=== PATIENT | female | born 1955 | race African-American/Black ===

== ENCOUNTER 2016-10-23 10:43 | Emergency (ER) | payer SELFPAY ==
[~2016-10-23] VITALS: Ht 162.6 cm; Wt 90.0 kg
[~2016-10-23 10:43] MED LIST: MOBI7.5T PO; NIFE30TA2 PO; OXYB5TAB PO; OXYB5TAB10 PO; PARO20TA PO
[2016-10-23 10:46] VITALS: BP 150/80; PULSE 95; RESP 18; TEMP 98; O2SAT 100
--- NOTE | 2016-10-23 11:04 | PD ---
HPI Chief Complaint: Abdominal Pain Time Seen by Provider: 11:03 Travel History International Travel<30 days: No Contact w/Intl Traveler<30days: No Traveled to known affect area: No History of Present Illness HPI 61-year-old Afro-Wallisian female presents the emergency department with 2 week history of worsening abdominal pain. Patient states intermittent sharp epigastric tenderness which is been progressively worsening over the past 2 weeks. Patient was seen at [facility] [place] as CT scan diagnosed with gastritis. Patient states he was discharged home with prescription for Zofran and some other medication she cannot recall. She then saw her primary care physician who prescribed her omeprazole 3 days ago which has not improved her symptoms. Patient states she thought she was doing better until this morning when she had another attack at approximately 10:00. Patient states she ate coffee and apple pie at approximately 8:00 this morning. Patient denies blood in the emesis or coffee grounds. She denies changes in her bowels. She denies urinary symptoms. She denies fever, chills, or other symptoms she has no cardiac history previous to this. Patient does not seem to think food or exertion makes this worse. Over she states nausea and occasional vomiting with food. Patient states she last vomited 2 days ago. She has no known drug allergies. Currently her pain is a 5 out of 10. It was 10 over 10 earlier today. PFSH Past Medical History Asthma: No Anxiety: Yes Cancer: No Cardiovascular Problems: No COPD: No Diabetes: No Endocrine: No Genitourinary: No Hepatitis: No Hiatal Hernia: No Hypertension: Yes Immune Disorder: No Musculoskeletal: Yes (arthritis lower back decompression) Neurologic: No Psychiatric: Yes (anxiety) Reproductive: No Respiratory: No Thyroid Disease: No PNEUMOCCOCAL Vaccine (Year): 2 ?: Not Past Surgical History AICD: No Gynecologic Surgery: Yes (x2 c sections) Joint Replacement: No Pacemaker: No Social History Alcohol Use: Yes (OCCASIONALLY) Tobacco Use: Yes (1-2 CIGGS DAILY...NOW ON CHANTEX MAY 2010) Substance Use: No Allergies-Medications (Allergen,Severity, Reaction): Coded Allergies: No Known Allergies (Verified , 06/26/15) Reported Meds & Prescriptions Reported Meds & Active Scripts Active Ditropan (Oxybutynin Chloride) 5 Mg Tab 5 Mg PO Q12HR Mobic (Meloxicam) 7.5 Mg Tab 7.5 Mg PO DAILY Oxybutynin Chloride Er (Oxybutynin Chloride) 5 Mg Tab 5 Mg PO BID Reported Paroxetine Hcl 20 Mg Tab 20 Mg PO DAILY Nifedical Xl (Nifedipine) 30 Mg Tab 30 Mg PO BID Review of Systems Except as stated in HPI: all other systems reviewed are Neg General / Constitutional: Positive: Chills, No: Fever Eyes: No: Visual changes HENT: No: Headaches Cardiovascular: No: Chest Pain or Discomfort Respiratory: No: Shortness of Breath Gastrointestinal: Positive: Nausea, Vomiting, Abdominal Pain, Dysphagia, Loss of Appetite, No: Diarrhea, Hematemesis, Hematochezia, Constipation, Changes in Bowel Habits Genitourinary: No: Dysuria Musculoskeletal: No: Pain Skin: No Rash Neurologic: No: Weakness Psychiatric: No: Depression Endocrine: No: Polydipsia Hematologic/Lymphatic: No: Easy Bruising Physical Exam Narrative GENERAL: Patient appears in mild to moderate distress. SKIN: Warm and dry. Normal color. Normal turgor. HEAD: Atraumatic. Normocephalic. EYES: Pupils equal and round. No scleral icterus. No injection or drainage. ENT: No nasal bleeding or discharge. Mucous membranes pink and moist. Pharynx is clear. Airway is patent NECK: Trachea midline. Supple nontender. CARDIOVASCULAR: Regular rate and rhythm. No murmurs gallops or rubs. RESPIRATORY: No accessory muscle use. Clear to auscultation. Breath sounds equal bilaterally. GASTROINTESTINAL: Abdomen soft, moderate epigastric tenderness with palpation, nondistended. Bowel sounds present in all quadrants. Hepatic and splenic margins not palpable. No masses. No CVA tenderness. MUSCULOSKELETAL: Extremities without clubbing, cyanosis, or edema. No obvious deformities. NEUROLOGICAL: Awake and alert. No obvious cranial nerve deficits. Motor grossly within normal limits. Five out of 5 muscle strength in the arms and legs. Normal speech. PSYCHIATRIC: Appropriate mood and affect; insight and judgment normal. Data Data Last Documented VS Vital Signs Date Time Temp Pulse Resp B/P Pulse Ox O2 Delivery O2 Flow Rate FiO2 10/23/16 13:33 83 16 166/85 97 Room Air 10/23/16 10:46 98.0 Orders Complete Blood Count With Diff (10/23/16 11:05) Comprehensive Metabolic Panel (10/23/16 11:05) Lipase (10/23/16 11:05) Lactic Acid (10/23/16 11:05) Prothrombin Time / Inr (Pt) (10/23/16 11:05) Act Partial Throm Time (Ptt) (10/23/16 11:05) Urinalysis - C+S If Indicated (10/23/16 11:05) Ct Abd/Pel W Iv Contrast(Rout) (10/23/16 11:05) Iv Access Insert/Monitor (10/23/16 11:05) Ecg Monitoring (10/23/16 11:05) Oximetry (10/23/16 11:05) Morphine Inj (Morphine Inj) (10/23/16 11:15) Ondansetron Inj (Zofran Inj) (10/23/16 11:15) Pantoprazole Inj (Protonix Inj) (10/23/16 11:15) Sodium Chlor 0.9% 1000 Ml Inj (Ns 1000 M (10/23/16 11:05) Sodium Chloride 0.9% Flush (Ns Flush) (10/23/16 11:15) Electrocardiogram (10/23/16 11:05) Ckmb (Isoenzyme) Profile (10/23/16 11:13) Magnesium (Mg) (10/23/16 11:13) Troponin I (10/23/16 11:13) Al-Mag Hy-Si 40-40-4 Mg/Ml Liq (Mag-Al P (10/23/16 11:15) Lidocaine 2% Viscous (Xylocaine 2% Visco (10/23/16 11:15) Chest, Single Ap (10/23/16 11:13) Vascular Poc Ultrasound (10/23/16 ) Iohexol 350 Inj (Omnipaque 350 Inj) (10/23/16 13:47) Labs Laboratory Tests Test 10/23/16 10/23/16 11:30 12:00 Urine Color YELLOW Urine Turbidity HAZY Urine pH 5.5 Urine Specific [place] 1.027 Urine Protein TRACE mg/dL Urine Glucose (UA) NEG mg/dL Urine Ketones NEG mg/dL Urine Occult Blood NEG Urine Nitrite NEG Urine Bilirubin NEG Urine Urobilinogen 2.0 MG/DL Urine Leukocyte Esterase NEG Urine RBC LESS THAN 1 /hpf Urine WBC 2 /hpf Urine Squamous Epithelial 11 /hpf Cells Urine Bacteria OCC /hpf Urine Mucus FEW /lpf Microscopic Urinalysis Comment CULT NOT INDICATED White Blood Count 10.2 TH/MM3 Red Blood Count 4.45 MIL/MM3 Hemoglobin 12.1 GM/DL Hematocrit 37.1 % Mean Corpuscular Volume 83.5 FL Mean Corpuscular Hemoglobin 27.3 PG Mean Corpuscular Hemoglobin 32.7 % Concent Red Cell Distribution Width 14.7 % Platelet Count 261 TH/MM3 Mean Platelet Volume 8.4 FL Neutrophils (%) (Auto) 79.6 % Lymphocytes (%) (Auto) 12.6 % Monocytes (%) (Auto) 6.6 % Eosinophils (%) (Auto) 0.8 % Basophils (%) (Auto) 0.4 % Neutrophils # (Auto) 8.1 TH/MM3 Lymphocytes # (Auto) 1.3 TH/MM3 Monocytes # (Auto) 0.7 TH/MM3 Eosinophils # (Auto) 0.1 TH/MM3 Basophils # (Auto) 0.0 TH/MM3 CBC Comment DIFF FINAL Differential Comment Prothrombin Time 10.7 SEC Prothromb Time International 1.0 RATIO Ratio Activated Partial 26.1 SEC Thromboplast Time Sodium Level 136 MEQ/L Potassium Level 3.7 MEQ/L Chloride Level 104 MEQ/L Carbon Dioxide Level 26.3 MEQ/L Anion Gap 6 MEQ/L Blood Urea Nitrogen 14 MG/DL Creatinine 0.67 MG/DL Estimat Glomerular Filtration 108 ML/MIN Rate Random Glucose 98 MG/DL Lactic Acid Level 2.0 mmol/L Calcium Level 9.0 MG/DL Magnesium Level 1.9 MG/DL Total Bilirubin 0.5 MG/DL Aspartate Amino Transf 73 U/L (AST/SGOT) Alanine Aminotransferase 50 U/L (ALT/SGPT) Alkaline Phosphatase 100 U/L Total Creatine Kinase 83 U/L Troponin I LESS THAN 0.02 NG/ML Total Protein 7.3 GM/DL Albumin 3.8 GM/DL Lipase 163 U/L [facility] Medical Decision Making Medical Screen Exam Complete: Yes Emergency Medical Condition: Yes Differential Diagnosis Gastritis. Renal colic. Biliary colic. Pancreatitis. Cardiac syndrome. Narrative Course Patient is medically stable at time of exam. Labs ordered including CBC, CMP, lipase, Lactic acid, cardiac panel, coagulation studies and Urinalysis. EKG and chest x-ray is ordered. IV access is obtained patient is given 1 g morphine IV as well as 4 mg OF trauma IV. Patient is given pantoprazole 40 mg IV as well as a 1000 mL normal saline bolus. CT of the abdomen with oral and IV contrast is ordered. Patient is also given a GI cocktail. EKG shows normal sinus rhythm. This is reviewed with Dr. Beth. Chest x-ray shows no acute process per radiologist CBC is unremarkable. Urinalysis is unremarkable. Coagulation studies are normal. CMP shows normal electrolytes and BUN and creatinine. Lipase is normal at 163. Troponin is normal. CT shows no acute process per radiology. Patient feels subjectively improved after medications given. Patient will be continued on omeprazole 40 mg twice a day for 2 weeks. Patient given Magic mouthwash swish and swallow every 2 hours when necessary # 120 mL was with 2 refills. Patient also given Zofran 4 mg one every 6 hours when necessary nausea #12. Patient is to follow-up with her primary care physician. Continue or worsen she should see a hot billet shear operator for further evaluation and treatment. Referrals: Primary Care Physician Patient Instructions: General Instructions Additional Instructions: Chest x-ray shows no acute process per radiologist CBC is unremarkable. Urinalysis is unremarkable. Coagulation studies are normal. CMP shows normal electrolytes and BUN and creatinine. Lipase is normal at 163. Troponin is normal. CT shows no acute process per radiology. Patient feels subjectively improved after medications given. Patient will be continued on omeprazole 40 mg twice a day for 2 weeks. Patient given Magic mouthwash swish and swallow every 2 hours when necessary # 120 mL was with 2 refills. Patient also given Zofran 4 mg one every 6 hours when necessary nausea #12. Patient is to follow-up with her primary care physician. Continue or worsen she should see a hot billet shear operator for further evaluation and treatment. Med/Other Pt SpecificInfo: Prescription(s) given Scripts Qhfxgodt-Xixihmlwrmigyis-Pugvdmaah Liq (Magic Mouthwash Adult Liq)120 Ml Susp5 Ml SWISH-SWAL Q2HR #120 ML Ref 2 Each 5mL contains: Nystatin 200,000units, Diphenhydramine 4.25mg, Viscous Lidocaine 10mg, Mar syrup 0.8 mL Prov:Noe Beth MD 10/23/16 Ondansetron (Zofran)4 Mg Tab4 Mg PO Q6HR PRN (NAUSEA OR VOMITING) #12 TAB Prov:Noe Beth MD 10/23/16 Omeprazole 40 Mg Cap40 Mg PO BID 15 Days Prov:Noe Beth MD 10/23/16 Disposition: 01 DISCHARGE HOME Condition: Stable Eric Hercules Oct 23, 2016 11:04
[2016-10-23] MEDS ORDERED: SODIUM CHLOR 0.9% 1000 ML INJ 1,000 ML IV SCH (11:05)
[2016-10-23] MEDS ORDERED: PANTOPRAZOLE SODIUM 40 MG VIAL IVP ONE (11:15)
[2016-10-23] MEDS ORDERED: MORPHINE SULFATE 4 MG/ML INJ IV PUSH ONE (11:15)
[2016-10-23] MEDS ORDERED: SODIUM CHLORIDE 0.9% FLUSH 10 ML FLUSH IV FLUSH PRN (11:15)
[2016-10-23] MEDS ORDERED: ALUMINUM/MAGNESIUM/SIMETH 30 ML CUP PO ONE (11:15)
[2016-10-23] MEDS ORDERED: ONDANSETRON HCL 4 MG/2 ML VIAL IVP ONE (11:15)
[2016-10-23] MEDS ORDERED: LIDOCAINE VISCOUS 2% SOLN 15 ML UDC PO ONE (11:15)
--- NOTE | 2016-10-23 12:08 | RADRPT ---
EXAM DATE/TIME: 10/23/2016 11:17 [facility] COMPARISON: No previous studies available for comparison. INDICATIONS : Lower chest, abdominal pain, and vomitting. MEDICAL HISTORY : Hypertension. SURGICAL HISTORY : Lumbar fusion. ENCOUNTER: Initial ACUITY: 3 weeks PAIN SCORE: 8/10 LOCATION: Bilateral chest FINDINGS: A single view of the chest demonstrates the lungs to be hypoinflated without evidence of mass, infilt rate or effusion. The cardiomediastinal contours are unremarkable. Osseous structures are intact. CONCLUSION: No acute disease. Eber Santillan MD on October 23, 2016 at 12:04 Board Certified Radiologist. This report was verified electronically.
[2016-10-23 12:13] VITALS: O2SAT 96
[2016-10-23 12:13] LABS: AUTOMATED NEUTROPHIL # 8.1 TH/MM3 (1.8-7.7); BASOPHIL % 0.4 % (0.0-2.0); EOSINOPHIL # 0.1 TH/MM3 (0-0.4); EOSINOPHIL % 0.8 % (0.0-4.0); HEMATOCRIT 37.1 % (35.0-46.0); HEMO FLAGS DIFF FINAL; LYMPH % 12.6 % (9.0-44.0); LYMPHOCYTE # 1.3 TH/MM3 (1.0-4.8); MEAN CELL VOLUME 83.5 FL (80.0-100.0); MEAN CORPUSCULAR HEMOGLOBIN 27.3 PG (27.0-34.0); MEAN CORPUSCULAR HGB CONC 32.7 % (32.0-36.0); MONO % 6.6 % (0.0-8.0); NEUT % 79.6 % (16.0-70.0); PLATELET COUNT 261 TH/MM3 (150-450); RED BLOOD COUNT 4.45 MIL/MM3 (4.00-5.30); RED CELL DISTRIBUTION WIDTH 14.7 % (11.6-17.2); WHITE BLOOD COUNT 10.2 TH/MM3 (4.0-11.0)
[2016-10-23 12:19] LABS: BACTERIA, URINE OCC /hpf; BLOOD, URINE NEG (NEG); COMMENT (UR) CULT NOT INDICATED; CULTURE IF INDICATED CULT NOT INDICATED; GLUCOSE,URINE NEG (NEG); KETONE, URINE NEG (NEG); MUCUS URINE FEW /lpf (OCC); NITRITE,URINE NEG (NEG); PH, URINE 5.5 (5.0-8.5); SQUAMOUS EPITHELIAL CELL URINE 11 /hpf (0-5); URINE COLOR YELLOW (YELLW/STRAW)
[2016-10-23 12:22] LABS: APTT (PATIENT) 26.1 SEC (24.3-30.1); PROTHROMBIN TIME - PATIENT 10.7 SEC (9.8-11.6)
[2016-10-23 12:37] LABS: MAGNESIUM 1.9 MG/DL (1.5-2.5)
[2016-10-23 12:39] LABS: ANION GAP 6 MEQ/L (5-15); BICARBONATE 26.3 MEQ/L (21.0-32.0); BLOOD UREA NITROGEN 14 MG/DL (7-18); CHLORIDE 104 MEQ/L (98-107); GLOMERULAR FILTRATION RATE 108 ML/MIN (>89); POTASSIUM 3.7 MEQ/L (3.5-5.1); SODIUM (NA) 136 MEQ/L (136-145)
[2016-10-23 12:40] LABS: CREATINE KINASE 83 U/L (26-192)
[2016-10-23 12:41] LABS: ALT (GPT) 50 U/L (10-53); AST (GOT) 73 U/L (15-37)
[2016-10-23 12:43] LABS: ALKALINE PHOSPHATASE 100 U/L (45-117); TOTAL BILIRUBIN ADULT 0.5 MG/DL (0.2-1.0)
[2016-10-23 13:33] VITALS: BP 166/85; PULSE 83; RESP 16; O2SAT 97
[2016-10-23] MEDS ORDERED: IOHEXOL 350 MG/ML 10 ML VIAL (for RAD DIAG) IV ONE (13:47)
--- NOTE | 2016-10-23 14:38 | RADRPT ---
EXAM DATE/TIME: 10/23/2016 13:49 [facility] COMPARISON: No previous studies available for comparison. INDICATIONS : Diffuse abdomen pain with vomiting for two weeks. IV CONTRAST: 90 cc Omnipaque 350 (iohexol) IV ORAL CONTRAST: Prescribed oral contrast ingested. RADIATION DOSE: 12.38 CTDIvol (mGy) MEDICAL HISTORY : Hypertension. SURGICAL HISTORY : section. ENCOUNTER: Initial ACUITY: 2 weeks PAIN SCALE: 10/10 LOCATION: Bilateral upper quadrant TECHNIQUE: Volumetric scanning of the abdomen and pelvis was performed. Using automated exposure control and ad justment of the mA and/or kV according to patient size, radiation dose was kept as low as reasonably achievable to obtain optimal diagnostic quality images. DICOM format image data is available electro nically for review and comparison. FINDINGS: LOWER LUNGS: The visualized lower lungs are clear. LIVER: Homogeneous density without lesion. There is no dilation of the biliary tree. No calcified gallston es. SPLEEN: Normal size without lesion. PANCREAS: Within normal limits. KIDNEYS: Normal in size and shape. There is no mass, stone or hydronephrosis. ADRENAL GLANDS: Within normal limits. VASCULAR: There is no aortic aneurysm. BOWEL/MESENTERY: The stomach, small bowel, and colon demonstrate no acute abnormality. There is no free intraperitone al air or fluid. ABDOMINAL WALL: Within normal limits. RETROPERITONEUM: There is no lymphadenopathy. BLADDER: No wall thickening or mass. REPRODUCTIVE: Within normal limits. INGUINAL: There is no lymphadenopathy or hernia. MUSCULOSKELETAL: Or lumbar fixation apparatus is noted. CONCLUSION: 1. No evidence of acute process. 2. Status post lumbar fusion. Eber Santillan MD on October 23, 2016 at 14:35 Board Certified Radiologist. This report was verified electronically.
[2016-10-23] MEDS ORDERED: MAGICADU2 SWISH-SWAL (14:49)
[2016-10-23] MEDS ORDERED: ZOFR4TAB PO (14:49)
[2016-10-23] MEDS ORDERED: OMEP40CA2 PO (14:49)
--- NOTE | 2016-10-23 14:58 | PD ---
Data Data Last Documented VS Vital Signs Date Time Temp Pulse Resp B/P Pulse Ox O2 Delivery O2 Flow Rate FiO2 10/23/16 13:33 83 16 166/85 97 Room Air 10/23/16 10:46 98.0 Orders Complete Blood Count With Diff (10/23/16 11:05) Comprehensive Metabolic Panel (10/23/16 11:05) Lipase (10/23/16 11:05) Lactic Acid (10/23/16 11:05) Prothrombin Time / Inr (Pt) (10/23/16 11:05) Act Partial Throm Time (Ptt) (10/23/16 11:05) Urinalysis - C+S If Indicated (10/23/16 11:05) Ct Abd/Pel W Iv Contrast(Rout) (10/23/16 11:05) Iv Access Insert/Monitor (10/23/16 11:05) Ecg Monitoring (10/23/16 11:05) Oximetry (10/23/16 11:05) Morphine Inj (Morphine Inj) (10/23/16 11:15) Ondansetron Inj (Zofran Inj) (10/23/16 11:15) Pantoprazole Inj (Protonix Inj) (10/23/16 11:15) Sodium Chlor 0.9% 1000 Ml Inj (Ns 1000 M (10/23/16 11:05) Sodium Chloride 0.9% Flush (Ns Flush) (10/23/16 11:15) Electrocardiogram (10/23/16 11:05) Ckmb (Isoenzyme) Profile (10/23/16 11:13) Magnesium (Mg) (10/23/16 11:13) Troponin I (10/23/16 11:13) Al-Mag Hy-Si 40-40-4 Mg/Ml Liq (Mag-Al P (10/23/16 11:15) Lidocaine 2% Viscous (Xylocaine 2% Visco (10/23/16 11:15) Chest, Single Ap (10/23/16 11:13) Vascular Poc Ultrasound (10/23/16 ) Iohexol 350 Inj (Omnipaque 350 Inj) (10/23/16 13:47) Labs Laboratory Tests Test 10/23/16 10/23/16 11:30 12:00 Urine Color YELLOW Urine Turbidity HAZY Urine pH 5.5 Urine Specific [place] 1.027 Urine Protein TRACE mg/dL Urine Glucose (UA) NEG mg/dL Urine Ketones NEG mg/dL Urine Occult Blood NEG Urine Nitrite NEG Urine Bilirubin NEG Urine Urobilinogen 2.0 MG/DL Urine Leukocyte Esterase NEG Urine RBC LESS THAN 1 /hpf Urine WBC 2 /hpf Urine Squamous Epithelial 11 /hpf Cells Urine Bacteria OCC /hpf Urine Mucus FEW /lpf Microscopic Urinalysis Comment CULT NOT INDICATED White Blood Count 10.2 TH/MM3 Red Blood Count 4.45 MIL/MM3 Hemoglobin 12.1 GM/DL Hematocrit 37.1 % Mean Corpuscular Volume 83.5 FL Mean Corpuscular Hemoglobin 27.3 PG Mean Corpuscular Hemoglobin 32.7 % Concent Red Cell Distribution Width 14.7 % Platelet Count 261 TH/MM3 Mean Platelet Volume 8.4 FL Neutrophils (%) (Auto) 79.6 % Lymphocytes (%) (Auto) 12.6 % Monocytes (%) (Auto) 6.6 % Eosinophils (%) (Auto) 0.8 % Basophils (%) (Auto) 0.4 % Neutrophils # (Auto) 8.1 TH/MM3 Lymphocytes # (Auto) 1.3 TH/MM3 Monocytes # (Auto) 0.7 TH/MM3 Eosinophils # (Auto) 0.1 TH/MM3 Basophils # (Auto) 0.0 TH/MM3 CBC Comment DIFF FINAL Differential Comment Prothrombin Time 10.7 SEC Prothromb Time International 1.0 RATIO Ratio Activated Partial 26.1 SEC Thromboplast Time Sodium Level 136 MEQ/L Potassium Level 3.7 MEQ/L Chloride Level 104 MEQ/L Carbon Dioxide Level 26.3 MEQ/L Anion Gap 6 MEQ/L Blood Urea Nitrogen 14 MG/DL Creatinine 0.67 MG/DL Estimat Glomerular Filtration 108 ML/MIN Rate Random Glucose 98 MG/DL Lactic Acid Level 2.0 mmol/L Calcium Level 9.0 MG/DL Magnesium Level 1.9 MG/DL Total Bilirubin 0.5 MG/DL Aspartate Amino Transf 73 U/L (AST/SGOT) Alanine Aminotransferase 50 U/L (ALT/SGPT) Alkaline Phosphatase 100 U/L Total Creatine Kinase 83 U/L Troponin I LESS THAN 0.02 NG/ML Total Protein 7.3 GM/DL Albumin 3.8 GM/DL Lipase 163 U/L MDM Supervised Visit with [facility]: Yes Narrative Course The history, exam, and medical decision-making in the associated mid-level provider note were completed with my assistance. I reviewed and agree with the findings presented. I attest that I had a [id number] encounter with the patient on the same day, and personally performed and documented my assessment and findings in the medical record. *My assessment and Findings: 61-year-old woman with epigastric abdominal pain, likely gastritis or peptic ulcer disease. She was started on some omeprazole. Workup negative. Recommend she continue these medications, close outpatient follow-up. Referrals: Primary Care Physician Patient Instructions: General Instructions Additional Instruction: Chest x-ray shows no acute process per radiologist CBC is unremarkable. Urinalysis is unremarkable. Coagulation studies are normal. CMP shows normal electrolytes and BUN and creatinine. Lipase is normal at 163. Troponin is normal. CT shows no acute process per radiology. Patient feels subjectively improved after medications given. Patient will be continued on omeprazole 40 mg twice a day for 2 weeks. Patient given Magic mouthwash swish and swallow every 2 hours when necessary # 120 mL was with 2 refills. Patient also given Zofran 4 mg one every 6 hours when necessary nausea #12. Patient is to follow-up with her primary care physician. Continue or worsen she should see a electrician station assistant for further evaluation and treatment. Scripts Wqguykwh-Krbtprzczwjwoxc-Wjxxhzuxl Liq (Magic Mouthwash Adult Liq)120 Ml Susp5 Ml SWISH-SWAL Q2HR #120 ML Ref 2 Each 5mL contains: Nystatin 200,000units, Diphenhydramine 4.25mg, Viscous Lidocaine 10mg, Mar syrup 0.8 mL Prov:Noe Beth MD 10/23/16 Ondansetron (Zofran)4 Mg Tab4 Mg PO Q6HR PRN (NAUSEA OR VOMITING) #12 TAB Prov:Noe Beth MD 10/23/16 Omeprazole 40 Mg Cap40 Mg PO BID 15 Days Prov:Noe Beth MD 10/23/16 Disposition: 01 DISCHARGE HOME Condition: Stable Noe Beth MD Oct 23, 2016 14:58
[2016-10-23 15:21] VITALS: BP 172/76
--- NOTE | 2016-10-24 17:46 | EKG ---
Date Performed: 10/23/2016 Time Performed: 11:34:15 PTAGE: 61 years EKG: Sinus rhythm Normalization compared to prior tracing NORMAL ECG PREVIOUS TRACING : 11/15/2014 10.12 DOCTOR: Jonny Escalante Interpretating Date/Time 10/24/2016 17:45:46
== END 2016-10-23 15:30 | disposition home or self-care (01) ==
LOC: NEPD 10:43
DX: R10.13 Epigastric pain (principal); R11.2 Nausea with vomiting, unspecified; R13.10 Dysphagia, unspecified; F41.9 Anxiety disorder, unspecified; I10 Essential (primary) hypertension; M13.88 Other specified arthritis, other site
CPT/HCPCS: 71010; 74177; 80053; 81001; 82550; 83605; 83690; 83735; 84484; 85025; 85610; 85730; 93005; 96374; 96375; 99285; C9113; J2270; J2405; J7030; Q9967

== ENCOUNTER 2018-03-23 06:02 | Inpatient (IN) ==
[2018-03-23] MEDS ORDERED: Chlorhexidine Gluconate 2% 1 Pack (2 Cloths) TOPICAL ONE (06:39)
[2018-03-23] MEDS ORDERED: Metoprolol Tartrate 25 MG Tablet PO ONE (06:39)
[2018-03-23] MEDS ORDERED: Sodium Chlor 0.9% Inj 500 ML IV.SIG ONE (06:45)
[2018-03-23] MEDS ORDERED: ceFAZolin 2 GM IV; once IV.SIG ONE (06:45)
[2018-03-23] MEDS ORDERED: Sod Chloride 0.9% Inj 1,000 ML IV.SIG ONE (06:45)
--- NOTE | 2018-03-23 07:23 | XR ---
EXAM DATE: 03/23/2018 7:20 AM EST AGE/SEX: 62 years / Female INDICATIONS: Evaluate for pneumonia, pneumothorax, or any communicable disease. Pre op laminectomy. CLINICAL DATA: This is the patient's initial encounter. Patient reports that signs and symptoms have been present for 1 day and indicates a pain score of 0/10. MEDICAL/SURGICAL HISTORY: Arthritis. Gastroesophageal reflux disease. Hypertension. Pancreat itis. section. Back surgery. COMPARISON: [facility], MR LUMBAR SPINE W/O CONTRAST, 03/18/2018. . FINDINGS: A single AP view of the chest demonstrates the lungs to be symmetrically aerated without evidence of mass, infiltrate or effusion. The cardiomediastinal contours are unremarkable. Osseous structures a re intact. CONCLUSION: Negative for acute process Electronically signed by: Renaldo Poe MD Board Certified Radiologist 03/23/2018 7:22 AM EST
[2018-03-23] MEDS ORDERED: Propofol Inj 500 MG/50 ML Vial ONE ×3 (07:26→12:41)
[2018-03-23] MEDS ORDERED: Thrombin Topical Soln 5,000 UNIT Vial TOPICAL ONE ×2 (07:30→09:41)
[2018-03-23] MEDS ORDERED: Lidocaine 1%/Epinephrine 1:100,000 Inj 30 ML Vial ONE (07:30)
[2018-03-23] MEDS ORDERED: Gelatin Size 100 Topical Foam ONE (07:31)
[2018-03-23] MEDS ORDERED: Artificial Tears Opth Oint 3.5 GM Tube ONE (08:25)
[2018-03-23] MEDS ORDERED: Bupivacaine/Epinephrine PF Inj 0.5% 30 ML Vial ONE (09:20)
[2018-03-23] MEDS ORDERED: Lidocaine 1% Inj 50 ML Vial ONE (09:21)
[2018-03-23] MEDS ORDERED: ceFAZolin 1 GM Premix Inj 2 GM/100 ML PIGGYBACK IV.SIG ONE (13:01)
--- NOTE | 2018-03-23 14:02 | XR ---
EXAM DATE: 03/23/2018 1:54 PM EST AGE/SEX: 62 years / Female INDICATIONS: Post-op L2-L3, L3-L4, L4-L5 posterior lumbar fusion. CLINICAL DATA: This is the patient's subsequent encounter. Patient reports that signs and symptoms h ave been present for 1 day and indicates a pain score of Nonresponsive. MEDICAL/SURGICAL HISTORY: Non-responsive. Fusion, lumbar. COMPARISON: [facility], XR SPINE LUMBAR (MIN 4 VIEWS), 04/25/2014. . FINDINGS: Status post transpedicular fixation from L2 to L5.. Anatomic alignment. Artificial disc is seen at L2 -3 and L4-5. CONCLUSION: Anatomic alignment. Electronically signed by: Renaldo Poe MD Board Certified Radiologist 03/23/2018 2:00 PM EST
[2018-03-23] MEDS ORDERED: fentaNYL Citrate Inj 100 MCG/2 ML Ampul ONE (14:21)
[2018-03-23] MEDS ORDERED: *HYDROmorphone PF Inj 1 MG/ML Ampul PERIprocedural Use ONLY ONE ×2 (14:41→14:45)
[2018-03-23] MEDS ORDERED: Acetaminophen 325 MG Tablet PO PRN (14:50)
[2018-03-23] MEDS ORDERED: Naloxone Inj 0.4 MG/ML Vial IV.PUSH PRN (14:50)
[2018-03-23] MEDS ORDERED: Post-op Orders (for Pharmacy) OTHER STA (14:50)
[2018-03-23] MEDS ORDERED: Bisacodyl 10 MG Supp RECTAL PRN (14:50)
[2018-03-23] MEDS ORDERED: Morphine Inj 30 MG/30 ML PCA.VIAL PCA ONE (15:03)
[2018-03-23] MEDS: Morphine Inj 30 MG/30 ML PCA.VIAL PCA PRN (15:40)
--- NOTE | 2018-03-23 15:42 | P.CONIM ---
History of Present Illness Primary Care Provider: Nina Thomas MD History of Present Illness: Pt is 62 yo with hx lumbar surgery who was admitted today after L2-5 fusion for symptomatic spinal stenosis. Pt seen in Pacu and is sleepy but is responsive and follows commands. She is moving all extremities. Just recieved small dose iv dilaudid. Only functional iv site right foot. Pt denies any cp or sob. PMH: lumbar spinal stenosis/radiculopathy prior lumbar surgery. htn depression gerd urinary incontinence ptsd FH: [place] SH. smokes 2 to 3x per week. Meds: norvasc 10mg daily paxil 20mg daily oxybutynin 5mg daily norco 7.5/325mg as needed zantac 150mg take 300mg hs [facility] Social History Social History Substance History: No History of Abuse Second Hand Smoke Exposure: Yes Smoking Status: Current every day smoker Tobacco Type: Cigarettes How Often Do You Have a Drink Containing Alcohol: 2 to 3 times a week Recent Travel in [facility] within the Last 8 Weeks: No Recent Out of Country Travel within the Last 8 Weeks: No Medications and Allergies Allergies Allergy/AdvReac Type Severity Reaction Status Date / Time No Known Allergies Allergy Verified 03/23/18 07:20 Home Medications Medication Instructions Recorded Confirmed Type amlodipine 10 mg PO DAILY 03/21/18 03/23/18 History paroxetine HCl [Paxil] 20 mg PO DAILY 03/21/18 03/23/18 History hydrocodone-acetaminophen [[place]] 1 tab PO TID PRN 03/23/18 03/23/18 History oxybutynin chloride 5 mg PO HS 03/23/18 03/23/18 History ranitidine HCl 300 mg PO HS 03/23/18 03/23/18 History Active Medications: Active Medications Acetaminophen (Tylenol) 650 mg PO Q6H PRN PRN Reason: PAIN LESS THAN 5 ON SCALE Hydrocodone Bitart/Acetaminophen ([place] 10/325) 1 tab PO Q4H PRN PRN Reason: PAIN LESS THAN 5 ON SCALE Al Hydroxide/Mg Hydroxide (Milk Of Magnesia Liq) 30 ml PO BID PRN PRN Reason: Mild Constipation Bisacodyl (Dulcolax Supp) 10 mg RECTAL DAILY PRN PRN Reason: SEVERE CONSITIPATION Diphenhydramine HCl (Benadryl Inj) 25 mg IV.PUSH Q6H PRN PRN Reason: for itching Enoxaparin Sodium (Lovenox Inj) 40 mg SQ Q24H TAZ Lactated Ringer's (Lr 1000 Ml Inj) 1,000 mls @ 30 mls/hr IV.SIG .Q24H TAZ Stop: 03/24/18 06:44 Last Admin: 03/23/18 08:17 Dose: 30 mls/hr Sodium Chloride (Ns Inj) 500 mls @ 30 mls/hr IV.SIG .[id number] ONE Stop: 03/23/18 23:24 Last Admin: 03/23/18 07:38 Dose: Not Given Sodium Chloride (Ns Inj) 1,000 mls @ 30 mls/hr IV.SIG .Q24H ONE Stop: 03/24/18 06:44 Last Admin: 03/23/18 07:38 Dose: Not Given Cefazolin Sodium/Dextrose (Ancef 2 Gm Premix Inj) 2 gm in 50 mls @ 100 mls/hr IV.SIG Q8H [facility] Stop: 03/24/18 13:29 Morphine Sulfate (Morphine Inj) 30 mg in 30 mls @ 0 mls/hr INK GRINDER UNSCH PRN PRN Reason: prn pain Potassium Chloride/Sodium Chloride (Ns + Kcl 20 Meq Inj) 1,000 mls @ 80 mls/hr IV.CONT .[id number] [facility] Lactulose (Lactulose Liq) 30 ml PO DAILY PRN PRN Reason: SEVERE CONSITIPATION Miscellaneous Information (Misc Nursing Information) 1 each OTHER UNSCH PRN PRN Reason: SEE LABEL COMMENTS Stop: 03/24/18 14:30 Morphine Sulfate (Morphine Inj) 2 mg IV.PUSH Q3H PRN PRN Reason: BREAKTHROUGH PAIN Naloxone HCl (Narcan Inj) 0.4 mg IV.PUSH PRN PRN PRN Reason: Resp rate < 10 Ondansetron HCl (Zofran Inj) 4 mg IV.PUSH Q6H PRN PRN Reason: NAUSEA OR VOMITING Senna/Docusate Sodium (Rosi-Colace) 1 tab PO BID [facility] Sennosides (Senokot) 17.2 mg PO BID PRN PRN Reason: Moderate Constipation Sodium Chloride (Ns Flush) 2 ml IV.FLUSH PRN PRN PRN Reason: FLUSH AFTER USING IV ACCESS Sodium Chloride (Ns Flush) 2 ml IV.FLUSH BID TAZ Physical Exam Vital signs: Last Vital Signs Temp 98.6 F 03/23/18 07:00 Pulse 94 H 03/23/18 07:00 Resp 16 03/23/18 07:00 BP 179/95 H 03/23/18 07:00 Pulse Ox 100 03/23/18 07:00 Narrative: lying in pacu bed writhing a little moves all 4 extremities follows commands heart reg lung cta abd s/nt ext no edema lumbar khalif drain boswell Assessment and Plan Assessment (1) Lumbar stenosis: Code(s): M48.061 - Spinal stenosis, lumbar region without neurogenic claudication Status: Acute Plan 1. s/p L2-5 fusion. lumbar spinal stenosis/radiculopathy 2. htn 3. depression 4. gerd 5. urinary incontinence dvt prophylaxis pain control on family resource management specialist pump consult IV team for iv access. PT eval dc boswell jerry. cont home bp meds ivf. advance diet as tolerated AM bmp.
--- NOTE | 2018-03-23 16:21 | P.OP ---
- Preoperative Diagnosis (1) Lumbar stenosis Date of procedure: 03/23/18 Procedure: Extension of prior L4/5 fusion up to L2/3 Laminectomy at L2/3 and L3/4 as well as right sided L2/3 discectomy Instrumentation from L2-L3-L4-L5 [place] screws L2, L3 6.5 x 45 both levels both sides 110mm rods into prior screws from L2 down to L5 10mm lordoic PEEK interbody at L2/3 using Novabone and Ceramic allograft [facility] Surgeon: Oziel Chester MD Estimated blood loss (mL): 400 Operation and Findings: Indications: This is a 62yoF who had an L4/5 fusion in 2014 by Orthopedics here at [place]. She did well. Over the past year she has developed neurogenic claudication. Imaging shows a large disc herniation at L2/3 as well as stenosis at L3/4 adjacent to her prior fusion. Open revision of the construct, decompression of L2/3 and L3/4 with laminectomy and discectomy at right L2/3 with extension of fusion up to L2 is indicated. Description of Procedure: Patient was brought to Main OR and the procedure done under general. She was placed in prone position on the [facility] bed with pads and all pressure points padded. Midlumbar spine was prepped and draped in the usual sterile fashion. Old lateral incisions were marked but a new midline incision was used. This was infiltrated with local, then opened sharply down to spinous processes of L2 to L5. Subperiosteal dissection was carried out from L2 and L3 out to the facets bilaterally. At L4 and L5 old screws were located and dissected to expose the steve. Old set screws and rods removed. New pedicles screws placed at L2 and L3 using awl, drill, tap method and biplane fluoro with screws measuring 6.5 x 45mm. Next decompression performed to decompression L2/ 3 and L3/4 intervals with full laminectomies using drill, curettes, and kerosin rongeurs. Right L2/3 interval revealed a very large herniated disc which was sent to pathology for permanent section. Thecal sac retracted medially and the right L2/3 disc space was identified. This was opened sharply and discectomy performed removing disc material, using ellen of progressive size up to 10mm, with fluoroscopic guidance. A size 10mm Lordotic PEEK cage filled with allograft was advanced to the disc space using fluoroscopic guidance after packing before and after with allograft. 110mm Lordotic rods were placed in the set screws and torque countertorqued to final tighten. Exposed dura was covered with gelfoam, wound irrigated with bacitracin irrigation, then closed in layers over a 7-flat channel drain using 0-Vicryl for deep fascia, 2-0 Vicryl for superficial fascia and subcutaneous, shaniqua for skin. Sterile dressing applied and nylon drain suture secured. There were no periprocedural complications. All sponge and needle counts were correct. Patient was returned supine, extubated and taken to recovery in stable condition. Dr. Chester was present and scrubbed for the entire procedure. EBL 400cc, ending Hgb 10 (starting 12), no blood transfused.
[2018-03-23 17:28] LABS: Hematocrit 32.7 % (35.0-46.0); Hemoglobin 10.7 gm/dL (11.6-15.3); Mean Corpuscular HGB Conc 32.7 % (32.0-36.0); Mean Corpuscular Volume 85.7 fL (80.0-100.0); Mean Platelet Volume 8.3 fL (7.0-11.0); Platelet Count 223 th/mm3 (150-450); Red Blood Count 3.81 mil/mm3 (4.00-5.30); Red Cell Distribution Width 15.1 % (11.6-17.2); White Blood Count 12.5 th/mm3 (4.0-11.0)
[2018-03-23] MEDS: Morphine Inj 4 MG/ML Vial IV.PUSH PRN (18:42)
--- NOTE | 2018-03-23 18:45 | ECG ---
Date Performed: 03/23/2018 Time Performed: 06:57:35 PTAGE: 62 years EKG: Sinus rhythm NORMAL ECG PREVIOUS TRACING : 10/23/2016 11.34 Since the previous tracing, no significant change noted DOCTOR: Demetrio Vidales Interpretating Date/Time 03/23/2018 18:44:49
[2018-03-23] MEDS: Senna/Docusate Sodium 8.6/50 MG Tablet PO SCH (22:43)
[2018-03-23] MEDS: Famotidine 20 MG Tablet PO SCH (22:43)
[2018-03-23] MEDS: Ciprofloxacin 500 MG Tablet PO SCH (22:44)
[2018-03-23] MEDS: ceFAZolin 2 GM Premix Inj 2 GM/50 ML PIGGYBACK IV.SIG SCH (22:45)
[2018-03-24] MEDS: ceFAZolin 2 GM Premix Inj 2 GM/50 ML PIGGYBACK IV.SIG SCH ×2 (04:35→12:17)
[2018-03-24 06:44] LABS: Baso % (Auto) 0.2 % (0.0-2.0); Eos # (Auto) 0.4 th/mm3 (0.0-0.4); Eos % (Auto) 3.3 % (0.0-4.0); Hematocrit 29.3 % (35.0-46.0); Hemoglobin 9.7 gm/dL (11.6-15.3); Lymph # (Auto) 1.2 th/mm3 (1.0-4.8); Lymph % (Auto) 10.4 % (9.0-44.0); Mean Corpuscular Hemoglobin 28.2 pg (27.0-34.0); Mean Corpuscular Volume 85.5 fL (80.0-100.0); Mean Platelet Volume 8.9 fL (7.0-11.0); Mono # (Auto) 0.8 th/mm3 (0.0-0.9); Mono % (Auto) 6.9 % (0.0-8.0); Neut # (Auto) 9.5 th/mm3 (1.8-7.7); Neut % (Auto) 79.2 % (16.0-70.0); Platelet Count 275 th/mm3 (150-450); Red Blood Count 3.43 mil/mm3 (4.00-5.30); Red Cell Distribution Width 15.3 % (11.6-17.2); White Blood Count 11.9 th/mm3 (4.0-11.0)
[2018-03-24 07:02] LABS: Anion Gap 7 meq/L (5-15); Blood Urea Nitrogen 8 mg/dL (7-18); Carbon Dioxide 26.4 meq/L (21.0-32.0); Chloride 105 meq/L (98-107); Glomerular Filtration Rate Greater Than 89 mL/min (>89); Glucose,Random 119 mg/dL (74-106); Sodium 138 meq/L (136-145)
[2018-03-24 07:03] LABS: Potassium 4.1 meq/L (3.5-5.1)
[2018-03-24] MEDS: Famotidine 20 MG Tablet PO SCH ×2 (08:11→22:15)
[2018-03-24] MEDS: Senna/Docusate Sodium 8.6/50 MG Tablet PO SCH ×2 (08:11→22:15)
[2018-03-24] MEDS: Ciprofloxacin 500 MG Tablet PO SCH ×2 (08:11→22:15)
[2018-03-24] MEDS: amLODIPine 10 MG Tablet PO SCH (08:11)
--- NOTE | 2018-03-24 10:26 | P.PNIM ---
Subjective Interval history: on edge bed working with therapy. no complaints Physical Exam Vital signs: Last Vital Signs Temp 97.8 F 03/24/18 07:45 Pulse 89 03/24/18 07:45 Resp 20 03/24/18 07:45 BP 120/64 03/24/18 07:45 Pulse Ox 95 03/24/18 07:45 Narrative: on edge bed oriented/cooperative pleasant heart reg lung cta abd s/nt ext no edema boswell/khalif lumbar drain. Results Labs CBC & Chem 7: 03/24/18 05:17 03/24/18 05:17 Assessment and Plan Assessment (1) Lumbar stenosis: Code(s): M48.061 - Spinal stenosis, lumbar region without neurogenic claudication Status: Acute Plan 1. s/p L2-5 lami/fusion. lumbar spinal stenosis/radiculopathy 2. htn 3. depression 4. gerd 5. urinary incontinence dvt prophylaxis pain control on copy preparer pump per nsg PT eval dc boswell jerry. cont home bp meds ivf. advance diet as tolerated Progress Note: Quality VTE Deep Vein Thrombosis/Pulmonary Embolism Present on Admission: No
--- NOTE | 2018-03-24 10:55 | P.PNNS ---
Subjective Interval history: Moderately painful, using morphine WATCH DIAL MAKER and had taken Flexeril last night. Physical Exam Vital signs: Vital Signs 03/23/18 14:10 03/23/18 14:15 03/23/18 14:30 Temperature 98.1 F Pulse Rate 79 79 79 Respiratory Rate 15 21 21 Blood Pressure 117/65 118/66 117/61 Pulse Oximetry 96 97 97 03/23/18 14:45 03/23/18 15:00 03/23/18 15:30 Temperature 98.1 F Pulse Rate 79 80 81 Respiratory Rate 21 18 21 Blood Pressure 130/71 133/72 139/78 Pulse Oximetry 99 98 97 03/23/18 15:50 03/23/18 16:10 03/23/18 16:25 Temperature 97.5 F L Pulse Rate 85 Respiratory Rate 15 15 14 Blood Pressure 133/80 Pulse Oximetry 03/23/18 21:10 03/23/18 21:22 03/24/18 01:16 Temperature 97.7 F 97.7 F Pulse Rate 89 93 H Respiratory Rate 18 18 Blood Pressure 130/71 135/85 Pulse Oximetry 98 98 98 03/24/18 04:25 03/24/18 07:45 Temperature 98.4 F 97.8 F Pulse Rate 91 H 89 Respiratory Rate 18 20 Blood Pressure 146/66 H 120/64 Pulse Oximetry 99 95 Intake & Output 03/23/18 03/24/18 03/24/18 18:59 06:59 18:59 Intake Total 2500 / 2500 1100 / 1100 150 / 150 Output Total 1100 / 1100 250 / 250 Balance 1400 / 1400 850 / 850 150 / 150 Weight 86 kg 86 kg Intake: IV 1100 / 1100 150 / 150 NS + KCl 20 mEq Inj 1,000 ML @ 1000 / 1000 80 mls/hr IV.CONT .[id number] TAZ Rx#:[id number] Ancef 2 GM Premix Inj 2 gm In 100 / 100 50 ml @ 100 mls/hr IV.SIG Q8H TAZ Rx#:[id number] Anesthesia Amount 2500 / 2500 Output: Estimated Blood Loss 400 / 400 Urine Amount (Catheter) 700 / 700 Indwelling Urethral Catheter 700 / 700 Wound Drainage 250 / 250 # 1 Back Ar 250 / 250 Other: Date of Last Bowel Movement 03/22/18 03/22/18 Weight On Admission 86 kg Narrative: awake, alert eating breakfast JU drain with 250 cc output overnight - Urinary Catheter Management Indwelling Urethral Catheter Cath placed during this visit: yes Reason for continuing: Hourly intake/output Insertion date: 03/23/18 Insertion time: 09:00 Assessment and Plan - Plan 62 y/o female s/p Extension of prior L4/5 fusion up to L2/3, Laminectomy at L2/ 3 and L3/4 as well as right sided L2/3 discectomy, Instrumentation from L2-L3-L4 -L5 on 03/23/18 03/24/18 cont morphine WATCH DIAL MAKER, oral pain meds prn cont SCDs and TEDs for dvt prophylaxis PT, mobilize OOB cont JU draining, monitor output f/u HH tomorrow morning case mgt for dc planning, patient will require acute rehab following discharge due to extensive multilevel spinal fusion surgery hospitalist following, appreciate assistance
--- NOTE | 2018-03-24 11:26 | P.CONREH ---
History of Present Illness Service: Physical Medicine and Rehabilitation Consult date: 03/24/18 Reason for Consult: Comprehensive Rehabilitation Evaluation Primary Care Provider: Nina Thomas MD History of Present Illness: Harry Sage is a 62-year-old [id number] female admitted to [facility] 03/23/18 with neurogenic claudication. Patient previously underwent bilateral L4-L5 lumbar laminectomy and fusion with subtotal facet resection 11/27. She subsequently developed increased pain with neurogenic claudication. Imaging showed large disc herniation L2-L3 as well as stenosis L3-L4 adjacent to previous fusion. On 03/23/18 she underwent: extension of prior L4/5 fusion up to L2/3, laminectomy at L2/3 and L3/4 as well as right sided L2/3 discectomy with instrumentation from L2-L3-L4-L5 ([place] screws L2, L3 6.5 x 45 both levels both sides, 110mm rods into prior screws from L2 down to L5, 10mm lordoic PEEK interbody at L2/3 using Novabone and Ceramic allograft) by Dr. Chester. Patient currently on morphine [employer]ELOPER. Physical therapy evaluation is in process and patient has not been out of bed yet. Review of Systems Constitutional: Reports headache(s) (Mild) Eyes: Denies double vision Ears, Nose, Mouth, and Throat: Denies abnormal hearing, Denies difficulty swallowing, Denies dizziness Cardiovascular: Denies chest pain Respiratory: Reports shortness of breath with activity, Denies shortness of breath Gastrointestinal: Reports constipation, Denies abdominal pain Genitourinary: Reports urinary urgency Musculoskeletal: Reports radiating pain into limb Skin/Breast: Denies rash Neurologic: Denies confusion Psychiatric: Denies confusion Allergic/Immunologic: Denies throat swelling PMFSH - History History Provided By: Patient - Medical History Medical History: Medical History (Last Reviewed 03/24/18 @ 11:41 by Gin Dewey MD) Anxiety Arthritis Back pain GERD (gastroesophageal reflux disease) History of MRSA infection Onset Date: ~03/21/18 Metal bone fixation hardware in place History of pancreatitis Hypertension - Surgical History Surgical History: Surgical History (Last Reviewed 03/24/18 @ 11:41 by Gin Dewey MD) History of back surgery History of section - Tobacco History Second Hand Smoke Exposure: Yes Tobacco Use In Past 30 Days: Yes Smoking Status: Current every day smoker Tobacco Type: Cigarettes - Alcohol History How Often Do You Have a Drink Containing Alcohol: 2 to 3 times a week - Substance Use History Substance History: No History of Abuse - Travel History Recent Travel in the [place] Within the Last 8 Weeks: No Recent Travel Out of the Country Within the Last 8 Weeks: No Medications and Allergies Active Medications: Active Medications Acetaminophen (Tylenol) 650 mg PO Q6H PRN PRN Reason: PAIN LESS THAN 5 ON SCALE Hydrocodone Bitart/Acetaminophen ([place] 10/325) 1 tab PO Q4H PRN PRN Reason: PAIN LESS THAN 5 ON SCALE Al Hydroxide/Mg Hydroxide (Milk Of Magnesia Liq) 30 ml PO BID PRN PRN Reason: Mild Constipation Amlodipine Besylate (Norvasc) 10 mg PO DAILY [facility] Last Admin: 03/24/18 08:11 Dose: 10 mg Bisacodyl (Dulcolax Supp) 10 mg RECTAL DAILY PRN PRN Reason: SEVERE CONSITIPATION Ciprofloxacin HCl (Cipro) 500 mg PO Q12HR [facility] Stop: 03/26/18 21:00 Last Admin: 03/24/18 08:11 Dose: 500 mg Clonidine HCl (Catapres) 0.1 mg PO Q4HR PRN PRN Reason: sbp > 170 Cyclobenzaprine HCl (Flexeril) 10 mg PO Q12H PRN PRN Reason: MUSCLE SPASM Last Admin: 03/24/18 10:17 Dose: 10 mg Diphenhydramine HCl (Benadryl Inj) 25 mg IV.PUSH Q6H PRN PRN Reason: for itching Enoxaparin Sodium (Lovenox Inj) 40 mg SQ Q24H [facility] Famotidine (Pepcid) 20 mg PO BID [facility] Last Admin: 03/24/18 08:11 Dose: 20 mg Cefazolin Sodium/Dextrose (Ancef 2 Gm Premix Inj) 2 gm in 50 mls @ 100 mls/hr IV.SIG Q8H [facility] Stop: 03/24/18 13:29 Last Infusion: 03/24/18 05:05 Dose: Infused Morphine Sulfate (Morphine Inj) 30 mg in 30 mls @ 0 mls/hr [employer]EL[employer] UNSCH PRN PRN Reason: prn pain Last Infusion: 03/24/18 06:25 Dose: 0 mls/hr Potassium Chloride/Sodium Chloride (Ns + Kcl 20 Meq Inj) 1,000 mls @ 80 mls/hr IV.CONT .[id number] [facility] Last Admin: 03/24/18 05:37 Dose: Not Given Lactulose (Lactulose Liq) 30 ml PO DAILY PRN PRN Reason: SEVERE CONSITIPATION Miscellaneous Information (Mis Nursing Information) 1 each OTHER UNSCH PRN PRN Reason: SEE LABEL COMMENTS Stop: 03/24/18 14:30 Morphine Sulfate (Morphine Inj) 2 mg IV.PUSH Q3H PRN PRN Reason: BREAKTHROUGH PAIN Last Admin: 03/23/18 18:42 Dose: 2 mg Naloxone HCl (Narcan Inj) 0.4 mg IV.PUSH PRN PRN PRN Reason: Resp rate < 10 Ondansetron HCl (Zofran Inj) 4 mg IV.PUSH Q6H PRN PRN Reason: NAUSEA OR VOMITING Oxybutynin Chloride (Ditropan) 5 mg PO [facility] Last Admin: 03/23/18 22:43 Dose: 5 mg Paroxetine HCl (Paxil) 20 mg PO DAILY [facility] Last Admin: 03/24/18 08:11 Dose: 20 mg Senna/Docusate Sodium (Rosi-Colace) 1 tab PO BID [facility] Last Admin: 03/24/18 08:11 Dose: 1 tab Sennosides (Senokot) 17.2 mg PO BID PRN PRN Reason: Moderate Constipation Sodium Chloride (Ns Flush) 2 ml IV.FLUSH PRN PRN PRN Reason: FLUSH AFTER USING IV ACCESS Sodium Chloride (Ns Flush) 2 ml IV.FLUSH BID [facility] Last Admin: 03/24/18 08:11 Dose: 2 ml Allergies Allergy/AdvReac Type Severity Reaction Status Date / Time No Known Allergies Allergy Verified 03/23/18 07:20 Home Medications Medication Instructions Recorded Confirmed Type amlodipine 10 mg PO DAILY 03/21/18 03/23/18 History paroxetine HCl [Paxil] 20 mg PO DAILY 03/21/18 03/23/18 History hydrocodone-acetaminophen [[place]] 1 tab PO TID PRN 03/23/18 03/23/18 History oxybutynin chloride 5 mg PO HS 03/23/18 03/23/18 History ranitidine HCl 300 mg PO HS 03/23/18 03/23/18 History Exam - Physical Examination Vital Signs / I&O: Vital Signs 03/23/18 14:10 03/23/18 14:15 03/23/18 14:30 Temperature 98.1 F Pulse Rate 79 79 79 Respiratory Rate 15 21 21 Blood Pressure 117/65 118/66 117/61 Pulse Oximetry 96 97 97 03/23/18 14:45 03/23/18 15:00 03/23/18 15:30 Temperature 98.1 F Pulse Rate 79 80 81 Respiratory Rate 21 18 21 Blood Pressure 130/71 133/72 139/78 Pulse Oximetry 99 98 97 03/23/18 15:50 03/23/18 16:10 03/23/18 16:25 Temperature 97.5 F L Pulse Rate 85 Respiratory Rate 15 15 14 Blood Pressure 133/80 Pulse Oximetry 03/23/18 21:10 03/23/18 21:22 03/24/18 01:16 Temperature 97.7 F 97.7 F Pulse Rate 89 93 H Respiratory Rate 18 18 Blood Pressure 130/71 135/85 Pulse Oximetry 98 98 98 03/24/18 04:25 03/24/18 07:45 Temperature 98.4 F 97.8 F Pulse Rate 91 H 89 Respiratory Rate 18 20 Blood Pressure 146/66 H 120/64 Pulse Oximetry 99 95 Intake & Output 03/23/18 03/24/18 03/24/18 18:59 06:59 18:59 Intake Total 2500 / 2500 1100 / 1100 150 / 150 Output Total 1100 / 1100 250 / 250 90 / 90 Balance 1400 / 1400 850 / 850 60 / 60 Weight 86 kg 86 kg Intake: IV 1100 / 1100 150 / 150 NS + KCl 20 mEq Inj 1,000 ML @ 1000 / 1000 80 mls/hr IV.CONT .[id number] [facility] Rx#:[id number] Ancef 2 GM Premix Inj 2 gm In 100 / 100 50 ml @ 100 mls/hr IV.SIG Q8H [facility] Rx#:[id number] Anesthesia Amount 2500 / 2500 Output: Estimated Blood Loss 400 / 400 Urine Amount (Catheter) 700 / 700 Indwelling Urethral Catheter 700 / 700 Wound Drainage 250 / 250 90 / 90 # 1 Back Ar 250 / 250 90 / 90 Other: Date of Last Bowel Movement 03/22/18 03/22/18 Weight On Admission 86 kg Intake & Output 03/22/18 03/23/18 03/24/18 03/25/18 06:59 06:59 06:59 06:59 Intake Total 3600 / 3600 150 / 150 Output Total 1350 / 1350 90 / 90 Balance 2250 / 2250 60 / 60 Weight 86 kg 86 kg General: No acute distress, Other (Awake and alert; answers questions appropriately and follows commands well) Respiratory: Lungs CTA, Non-labored respirations, BS equal Gastrointestinal: Positive bowel sounds, Non-distended, Non-tender Date of Last Bowel Movement: 03/22/18 Cardiovascular: Normal rate, Regular rhythm Skin: No rash Musculoskeletal: Swelling (Trace at the ankles bilaterally) Psychiatric: Cooperative, Appropriate mood & affect - Neurologic Orientation: oriented to: Self, Place, Time (With cues), Situation Neurologic: Cranial nerves (Intact 2 through 12), Speech (Clear) Motor: Right Upper Extremity (5/5), Left Upper Extremity (5/5), Right Lower Extremity (Testing limited to pain but ankle dorsi and plantar flexion grossly 5 /5), Left Lower Extremity (Testing limited to pain but ankle dorsi and plantar flexion appear to be 5/5) Spasticity: None noted Sensory: Impaired but present distal to the ankles bilaterally otherwise intact to light touch DTRs: Normal Babinski: Negative Clonus: Negative Results - Labs CBC & Chem 7: 03/24/18 05:17 03/24/18 05:17 Labs: Laboratory Results - last 24 hr 03/23/18 03/23/18 03/24/18 15:17 17:03 05:17 WBC 12.5 H RBC 3.81 L Hgb 10.9 L 10.7 L Hct 32.7 L MCV 85.7 MCH 28.0 MCHC 32.7 RDW 15.1 Plt Count 223 MPV 8.3 Neut % (Auto) Lymph % (Auto) Jackson % (Auto) Eos % (Auto) Baso % (Auto) Neut # (Auto) Lymph # (Auto) Jackson # (Auto) Eos # (Auto) Baso # (Auto) WBC Differential Differential Comment Sodium 138 Potassium 4.1 Chloride 105 Carbon Dioxide 26.4 Anion Gap 7 BUN 8 Creatinine 0.62 Estimated GFR Greater than 89 Random Glucose 119 H Calcium 8.0 L 03/24/18 05:17 WBC 11.9 H RBC 3.43 L Hgb 9.7 L Hct 29.3 L MCV 85.5 MCH 28.2 MCHC 33.0 RDW 15.3 Plt Count 275 MPV 8.9 Neut % (Auto) 79.2 H Lymph % (Auto) 10.4 Jackson % (Auto) 6.9 Eos % (Auto) 3.3 Baso % (Auto) 0.2 Neut # (Auto) 9.5 H Lymph # (Auto) 1.2 Jackson # (Auto) 0.8 Eos # (Auto) 0.4 Baso # (Auto) 0.0 WBC Differential . Differential Comment Auto diff final Sodium Potassium Chloride Carbon Dioxide Anion Gap BUN Creatinine Estimated GFR Random Glucose Calcium - Imaging Impressions Lumbar Spine X-Ray 03/23/18 00:00 CONCLUSION: Anatomic alignment. Assessment and Plan (1) Neurogenic claudication due to lumbar spinal stenosis Status: Acute Code(s): M48.062 - Spinal stenosis, lumbar region with neurogenic claudication - Plan Assessment: 1. Neurogenic claudication with large disc herniation L2-L3 as well as stenosis L3-L4 adjacent to previous fusion status post extension of prior L4/5 fusion up to L2/3, laminectomy at L2/3 and L3/4 as well as right sided L2/3 discectomy with instrumentation from L2-L3-L4-L5 on 03/23/18 2. Impaired mobility 3. Hypertension 4. Depression 5. GERD 6. Urinary incontinence 7. History of PTSD Recommendations: 1. PT to evaluate patient today for mobilization. 2. Occupational Therapy consulted to address ADLs 3. 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 The sister at this point is receiving respite care. Patient will benefit from ongoing inpatient rehabilitation to maximize mobility and her ability to assist with caregiver responsibilities related to her sister. Case management is addressing discharge planning. Discussed with rehab regional office coordinator. 4. Continue to wean pain medications. Patient will need to be off IV pain medications prior to transfer to inpatient rehab 5. Currently on Lovenox for VTE prophylaxis 6. Will follow while hospitalized and as appropriate at discharge Rehab plan of care discussed with patient and questions answered. Thank you for this consult.
[2018-03-24] MEDS: Morphine Inj 30 MG/30 ML PCA.VIAL PCA PRN (22:10)
--- NOTE | 2018-03-25 01:17 | US ---
EXAM DATE: 03/25/2018 1:11 AM EST AGE/SEX: 62 years / Female INDICATIONS: Patient unable to move her left leg after lumbar surgery on 03/23/18. CLINICAL DATA: This is the patient's initial encounter. Patient reports that signs and symptoms have been present for 1 day and indicates a pain score of 0/10. MEDICAL/SURGICAL HISTORY: Gastroesophageal reflux disease. Arthritis. Pancreatitis. Hyperten kailee. MRSA. Anxiety. section. Back surgery - 03/23/18. COMPARISON: No prior exams available for comparison. TECHNIQUE: Venous ultrasound of both lower extremities was performed from the inguinal ligament to t he proximal calf. Real-time, color Doppler and spectral tracing, compression and augmentation techni ques were used. FINDINGS: Normal compression of the deep venous system from the inguinal region to the proximal calf . No echogenic clot is seen. Normal response of the venous system to augmentation and respiration. CONCLUSION: No venous thrombosis is identified within the left lower extremity. Electronically signed by: Tarik Erazo MD Board Certified Radiologist 03/25/2018 1:16 AM EST
[2018-03-25] MEDS ORDERED: Gadobutrol PF 10 MMOL/10 ML Vial (for RAD) IV.SIG ONE (01:31)
--- NOTE | 2018-03-25 01:57 | MR ---
EXAM DATE: 03/25/2018 1:34 AM EST AGE/SEX: 62 years / Female INDICATIONS: . Back pain post op lumbar fusion 03/23/18 with inability to bend left leg. CLINICAL DATA: This is the patient's subsequent encounter. Patient reports that signs and symptoms h ave been present for 2 days and indicates a pain score of 6/10. MEDICAL/SURGICAL HISTORY: Gastroesophageal reflux disease. Hypertension. Pancreatitis. Fusion , lumbar. section. bladder surgery COMPARISON: [facility], MR LUMBAR SPINE W/O CONTRAST, 03/18/2018. . TECHNIQUE: Multiplanar, multisequence MRI examination of the lumbar spine was performed without and with 9 ml Gadavist (gadobutrol) contrast as a single exam dose. FINDINGS: The most caudal-appearing lumbar vertebra is numbered as L5. VERTEBRAE: There has been interval laminectomy at L1-L2 and L2-L3 with posterior hardware now extend ing from L2 through L5 consisting of bilateral pedicular screws with associated vertical rods. CONUS: Normal level and configuration. T10-T11: Decreased disc height with moderate size diffuse disc bulge mildly narrow the spinal canal a nd effacing the spinal cord. This level was not imaged previously. No definite neural foraminal narro wing is seen. T11-T12: Disc desiccation with decreased disc height and a diffuse disc bulge. There is bilateral fac et hypertrophy. No spinal canal stenosis or neural foraminal narrowing is present. T12-L1: Decreased disc height with disc desiccation and moderate size diffuse disc bulge with modera te facet hypertrophy. Lateral recesses are effaced with mild narrowing of the spinal canal. No signif icant neural foraminal narrowing is identified. Findings at this level are stable. L1-L2: Decreased disc height with disc desiccation and a right paracentral disc extrusion extending cranially from the disc space in the right lateral recess. It extends approximately 6 mm posterior to the L1 vertebral body. There has been laminectomy at this level there is a T1 hyperintense structure in the spinal canal at this level that is stable and could represent fat. The disc extrusion has mas s effect on the anterior aspect of the cord. No definite canal stenosis or neural foraminal stenosis is identified. L2-L3: There has been prior laminectomy at this level as well. Material placed in the disc space res ulting in improved disc height from the prior examination. Hardware is present posteriorly at this le karina. There is bilateral facet hypertrophy which has mild mass effect on the thecal sac no definite ca nal stenosis or neural foraminal narrowing is present. The previously described disc extrusion is no longer appreciated. L3-L4: Decreased disc height with disc desiccation. There is moderate facet hypertrophy along with a diffuse disc bulge. These changes result in moderate to severe spinal canal stenosis with anterior-p osterior flattening of the thecal sac. No neural foraminal stenosis is present. Findings at this leve l are stable. L4-L5: There is stable anterolisthesis of L4 on L5 measuring approximately 4 mm. Material has been p laced at the L4-L5 disc space. There has been prior laminectomy at this level. Diffuse disc bulge is present with moderate facet hypertrophy. Spinal canal is are not significantly narrowed and overall n ot significantly changed from the prior study. No neural foraminal stenosis is seen. L5-S1: There is mild facet hypertrophy. No disc herniation, canal stenosis, or neural foraminal sten osis is identified. Findings at this level are stable. Post contrast: No abnormal areas of contrast enhancement are identified. Other: The left adrenal gland has a stable appearance. There is fluid in the laminectomy defect and i n the paraspinous soft tissues primarily posterior to the L2 and L3 levels. CONCLUSION: 1. There has been interval laminectomy and posterior spinal fixation at L2-L3. Hardware now extends posteriorly at L2-L5. There is fluid in the laminectomy defect and edema in the paraspinous soft tiss ues posteriorly, as expected following recent surgery. No abnormal enhancement is identified. 2. There is stable moderate to severe spinal canal stenosis at L3-L4 secondary to facet arthrosis an d disc bulge. 3. There is a right paracentral disc extrusion at L1-L2 that has mild mass effect on the adjacent th ecal sac without definite spinal canal stenosis. 4. The previously documented extruded disc at L2-L3 is no longer definitively seen. Electronically signed by: Tarik Erazo MD Board Certified Radiologist 03/25/2018 1:56 AM EST
[2018-03-25] MEDS: amLODIPine 10 MG Tablet PO SCH (08:25)
[2018-03-25] MEDS: Famotidine 20 MG Tablet PO SCH ×2 (08:25→20:58)
[2018-03-25] MEDS: Ciprofloxacin 500 MG Tablet PO SCH ×2 (08:25→20:57)
[2018-03-25] MEDS: Senna/Docusate Sodium 8.6/50 MG Tablet PO SCH ×2 (08:25→20:58)
--- NOTE | 2018-03-25 08:31 | P.PNNS ---
Subjective Interval history: Some complaint of left leg weakness last night -- got MRI showing postop changes and DVT scan negative This morning left leg stronger, but not per her baseline (mostly hip flexion now 3/5--baseline ambulatory) Physical Exam Vital signs: Vital Signs 03/24/18 12:40 03/24/18 16:40 03/24/18 18:00 Temperature 98.7 F 97.7 F Pulse Rate 97 H 93 H Respiratory Rate 20 20 16 Blood Pressure 134/60 128/59 L Pulse Oximetry 100 94 L 03/24/18 18:21 03/24/18 20:00 03/24/18 21:10 Temperature 98.2 F Pulse Rate 103 H Respiratory Rate 16 19 Blood Pressure 137/70 Pulse Oximetry 95 94 L 03/24/18 22:40 03/25/18 00:00 03/25/18 04:00 Temperature 97.9 F 98.2 F Pulse Rate 110 H 108 H Respiratory Rate 16 18 17 Blood Pressure 119/77 119/72 Pulse Oximetry 99 95 03/25/18 07:46 Temperature 98.7 F Pulse Rate 108 H Respiratory Rate 20 Blood Pressure 143/66 H Pulse Oximetry 92 L Intake & Output 03/24/18 03/25/18 03/25/18 18:59 06:59 18:59 Intake Total 1200 / 1200 1000 / 1000 Output Total 145 / 145 200 / 200 Balance 1055 / 1055 800 / 800 Weight 98.5 kg Intake: IV 1200 / 1200 1000 / 1000 NS + KCl 20 mEq Inj 1,000 ML @ 1000 / 1000 80 mls/hr IV.CONT .[id number] [facility] Rx#:[id number] LR 1000 mL Inj 1,000 ML @ 30 1000 / 1000 mls/hr IV.SIG .Q24H [facility] Rx#: [id number] Ancef 2 GM Premix Inj 2 gm In 50 / 50 50 ml @ 100 mls/hr IV.SIG Q8H [facility] Rx#:[id number] Output: Wound Drainage 145 / 145 200 / 200 # 1 Back Ar 145 / 145 200 / 200 Other: Date of Last Bowel Movement 03/22/18 03/22/18 Narrative: awake, alert eating breakfast JU drain with 350cc overnight A&O x 3 CN II-XII intact Motor 5/5 UE and RLE LLE 3-4/5 hip flexion remainder distal 5/5 incision c/d/i - Urinary Catheter Management Indwelling Urethral Catheter Cath placed during this visit: yes Reason for continuing: Hourly intake/output Insertion date: 03/23/18 Insertion time: 09:00 Assessment and Plan - Plan 62 y/o female s/p Extension of prior L4/5 fusion up to L2/3, Laminectomy at L2/ 3 and L3/4 as well as right sided L2/3 discectomy, Instrumentation from L2-L3-L4 -L5 on 03/23/18 03/24/18 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
[2018-03-25 08:43] LABS: Baso % (Auto) 0.2 % (0.0-2.0); Eos # (Auto) 0.1 th/mm3 (0.0-0.4); Eos % (Auto) 0.8 % (0.0-4.0); Hematocrit 27.4 % (35.0-46.0); Hemoglobin 8.8 gm/dL (11.6-15.3); Lymph # (Auto) 1.6 th/mm3 (1.0-4.8); Lymph % (Auto) 13.9 % (9.0-44.0); Mean Corpuscular HGB Conc 32.2 % (32.0-36.0); Mean Corpuscular Hemoglobin 27.8 pg (27.0-34.0); Mean Corpuscular Volume 86.3 fL (80.0-100.0); Mean Platelet Volume 8.5 fL (7.0-11.0); Mono # (Auto) 1.2 th/mm3 (0.0-0.9); Mono % (Auto) 10.6 % (0.0-8.0); Neut # (Auto) 8.6 th/mm3 (1.8-7.7); Neut % (Auto) 74.5 % (16.0-70.0); Platelet Count 206 th/mm3 (150-450); Red Blood Count 3.18 mil/mm3 (4.00-5.30); Red Cell Distribution Width 15.2 % (11.6-17.2); White Blood Count 11.6 th/mm3 (4.0-11.0)
[2018-03-25] MEDS ORDERED: diazePAM 2 MG Tablet PO SCH (09:00)
[2018-03-25] MEDS: Enoxaparin Inj 40 MG/0.4 ML Syringe SQ SCH (12:08)
[2018-03-25] MEDS: Morphine Inj 4 MG/ML Vial IV.PUSH PRN (18:22)
[2018-03-25 23:18] LABS: Hematocrit 33.5 % (35.0-46.0); Hemoglobin 11.1 gm/dL (11.6-15.3)
[2018-03-26 07:24] LABS: Baso % (Auto) 0.1 % (0.0-2.0); Eos # (Auto) 0.1 th/mm3 (0.0-0.4); Hematocrit 33.2 % (35.0-46.0); Hemoglobin 10.9 gm/dL (11.6-15.3); Lymph # (Auto) 1.9 th/mm3 (1.0-4.8); Lymph % (Auto) 16.4 % (9.0-44.0); Mean Corpuscular HGB Conc 32.7 % (32.0-36.0); Mean Corpuscular Hemoglobin 26.7 pg (27.0-34.0); Mean Corpuscular Volume 81.6 fL (80.0-100.0); Mean Platelet Volume 8.4 fL (7.0-11.0); Mono # (Auto) 1.2 th/mm3 (0.0-0.9); Neut # (Auto) 8.6 th/mm3 (1.8-7.7); Neut % (Auto) 72.5 % (16.0-70.0); Platelet Count 206 th/mm3 (150-450); Red Blood Count 4.07 mil/mm3 (4.00-5.30); Red Cell Distribution Width 18.3 % (11.6-17.2); White Blood Count 11.9 th/mm3 (4.0-11.0)
[2018-03-26] MEDS: amLODIPine 10 MG Tablet PO SCH (08:44)
[2018-03-26] MEDS: Senna/Docusate Sodium 8.6/50 MG Tablet PO SCH ×2 (08:44→20:47)
[2018-03-26] MEDS: Ciprofloxacin 500 MG Tablet PO SCH ×2 (08:44→20:47)
[2018-03-26] MEDS: Famotidine 20 MG Tablet PO SCH ×2 (08:44→20:47)
--- NOTE | 2018-03-26 09:55 | P.PNNS ---
Subjective Interval history: Doing better-- up to bathroom and chair Physical Exam Vital signs: Vital Signs 03/25/18 10:22 03/25/18 12:00 03/25/18 15:33 Temperature 98.1 F 97.1 F L Pulse Rate 77 100 H Respiratory Rate 16 20 16 Blood Pressure 138/84 132/73 Pulse Oximetry 94 L 03/25/18 15:49 03/25/18 18:48 03/25/18 20:00 Temperature 98 F 97.7 F Pulse Rate 100 H 110 H Respiratory Rate 16 16 18 Blood Pressure 139/76 168/75 H Pulse Oximetry 98 97 03/25/18 20:01 03/25/18 20:16 03/25/18 20:54 Temperature 98 F 97.7 F 97.7 F Pulse Rate 107 H 97 H 112 H Respiratory Rate 18 19 19 Blood Pressure 147/73 H 165/80 H 168/75 H Pulse Oximetry 98 96 97 03/25/18 21:53 03/25/18 21:59 03/26/18 00:00 Temperature 97.9 F 98.2 F Pulse Rate 116 H 113 H Respiratory Rate 19 19 20 Blood Pressure 151/80 H 175/102 H Pulse Oximetry 97 97 03/26/18 04:00 03/26/18 07:45 Temperature 98.3 F 98.5 F Pulse Rate 104 H 100 H Respiratory Rate 19 20 Blood Pressure 172/90 H 173/93 H Pulse Oximetry 94 L 94 L Intake & Output 03/25/18 03/26/18 03/26/18 18:59 06:59 18:59 Intake Total 400 / 400 1442 / 1442 Output Total 135 / 135 780 / 780 Balance 265 / 265 662 / 662 Weight 98.5 kg Intake: IV 1000 / 1000 NS + KCl 20 mEq Inj 1,000 ML @ 1000 / 1000 80 mls/hr IV.CONT .[id number] [facility] Rx#:[id number] Oral 442 / 442 Intake (Blood Product) Amt 400 / 400 0 / 0 Rbc As-3 Leukoreduced Unit 0 / 0 [id number] Rbc As-3 Leukoreduced Unit 400 / 400 [id number] Output: Urine Amount (Catheter) 700 / 700 Indwelling Urethral Catheter 700 / 700 Wound Drainage 135 / 135 80 / 80 # 1 Back Ar 135 / 135 80 / 80 Other: # Voids 1 Date of Last Bowel Movement 03/22/18 03/22/18 Narrative: awake, alert eating breakfast JU drain with 350cc overnight A&O x 3 CN II-XII intact Motor 5/5 UE and RLE LLE 3-4/5 hip flexion remainder distal 5/5 incision c/d/i - Urinary Catheter Management Indwelling Urethral Catheter Cath placed during this visit: yes, but has since been removed by the nurse Reason for continuing: Hourly intake/output Insertion date: 03/23/18 Insertion time: 09:00 Removal date: 03/26/18 Removal time: 05:30 Assessment and Plan - Plan 62 y/o female s/p Extension of prior L4/5 fusion up to L2/3, Laminectomy at L2/ 3 and L3/4 as well as right sided L2/3 discectomy, Instrumentation from L2-L3-L4 -L5 on 03/23/18 03/24/18 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, oral pain meds prn cont SCDs and TEDs for dvt prophylaxis PT, mobilize OOB cont JU draining, monitor output f/u tomorrow morning case mgt for dc planning, patient will require acute rehab following discharge due to extensive multilevel spinal fusion surgery hospitalist following, appreciate assistance 03/25/18 left hip flexion weakness-- MRI last night showing post op changes, JU drain putting out 350-- keep in up to chair with PT today, keep boswell in one more day d/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
[2018-03-26] MEDS: Enoxaparin Inj 40 MG/0.4 ML Syringe SQ SCH (12:59)
[2018-03-27 08:04] LABS: Baso % (Auto) 0.2 % (0.0-2.0); Eos # (Auto) 0.1 th/mm3 (0.0-0.4); Eos % (Auto) 1.4 % (0.0-4.0); Hematocrit 33.2 % (35.0-46.0); Lymph # (Auto) 2.3 th/mm3 (1.0-4.8); Lymph % (Auto) 21.8 % (9.0-44.0); Mean Corpuscular HGB Conc 33.2 % (32.0-36.0); Mean Corpuscular Hemoglobin 27.4 pg (27.0-34.0); Mean Corpuscular Volume 82.3 fL (80.0-100.0); Mean Platelet Volume 8.4 fL (7.0-11.0); Mono # (Auto) 0.9 th/mm3 (0.0-0.9); Mono % (Auto) 8.5 % (0.0-8.0); Neut # (Auto) 7.2 th/mm3 (1.8-7.7); Neut % (Auto) 68.1 % (16.0-70.0); Platelet Count 217 th/mm3 (150-450); Red Blood Count 4.03 mil/mm3 (4.00-5.30); Red Cell Distribution Width 18.7 % (11.6-17.2); White Blood Count 10.5 th/mm3 (4.0-11.0)
[2018-03-27] MEDS: amLODIPine 10 MG Tablet PO SCH (08:57)
[2018-03-27] MEDS: Famotidine 20 MG Tablet PO SCH ×2 (08:57→20:07)
[2018-03-27] MEDS: Senna/Docusate Sodium 8.6/50 MG Tablet PO SCH ×2 (08:57→20:07)
--- NOTE | 2018-03-27 12:07 | P.PNNS ---
Subjective Interval history: Exam stable, Drain output coming down, feeling better. Physical Exam Vital signs: Vital Signs 03/26/18 15:30 03/26/18 20:00 03/27/18 00:00 Temperature 98.5 F 97.6 F 97.9 F Pulse Rate 100 H 100 H 101 H Respiratory Rate 20 18 18 Blood Pressure 129/63 143/64 H 150/82 H Pulse Oximetry 94 L 95 03/27/18 04:00 03/27/18 07:45 Temperature 97.8 F 97.6 F Pulse Rate 89 89 Respiratory Rate 18 20 Blood Pressure 143/64 H 124/80 Pulse Oximetry 92 L 94 L Intake & Output 03/26/18 03/27/18 03/27/18 18:59 06:59 18:59 Intake Total 1000 / 1000 Output Total / Balance 910 / 910 -30 Intake: IV 1000 / 1000 NS + KCl 20 mEq Inj 1,000 ML @ 1000 / 1000 80 mls/hr IV.CONT .[id number] [facility] Rx#:[id number] Output: Wound Drainage # 1 Back Ar Other: # Voids 1 1 Date of Last Bowel Movement 03/26/18 03/26/18 # Bowel Movements 1 Narrative: awake, alert eating breakfast JU drain with 100 overnight A&O x 3 CN II-XII intact Motor 5/5 UE and RLE LLE 3-4/5 hip flexion remainder distal 5/5 incision c/d/i - Urinary Catheter Management Indwelling Urethral Catheter Cath placed during this visit: yes, but has since been removed by the nurse Reason for continuing: Hourly intake/output Insertion date: 03/23/18 Insertion time: 09:00 Removal date: 03/26/18 Removal time: 05:30 Assessment and Plan - Plan 62 y/o female s/p Extension of prior L4/5 fusion up to L2/3, Laminectomy at L2/ 3 and L3/4 as well as right sided L2/3 discectomy, Instrumentation from L2-L3-L4 -L5 on 03/23/18 03/24/18 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, oral pain meds prn cont SCDs and TEDs for dvt prophylaxis PT, mobilize OOB cont JU draining, monitor output f/u HH tomorrow morning case mgt for dc planning, patient will require acute rehab following discharge due to extensive multilevel spinal fusion surgery hospitalist following, appreciate assistance 03/25/18 left hip flexion weakness-- MRI last night showing post op changes, JU drain putting out 350-- keep in up to chair with PT today, keep boswell in one more day 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 03/27/18 H/H stable -- drain output lessening -- will remove tomorrow bowel regimen worked ambulate with PT replace dressing optifoam silver try one dose decadron to see if it will help left leg pain today
[2018-03-27] MEDS: Enoxaparin Inj 40 MG/0.4 ML Syringe SQ SCH (12:35)
[2018-03-28] MEDS: Famotidine 20 MG Tablet PO SCH ×2 (10:22→22:15)
[2018-03-28] MEDS: Senna/Docusate Sodium 8.6/50 MG Tablet PO SCH ×2 (10:22→22:15)
[2018-03-28] MEDS: amLODIPine 10 MG Tablet PO SCH (10:22)
--- NOTE | 2018-03-28 10:38 | P.PNNS ---
Subjective Interval history: pt reports to be improving each day, continues with LLE proximal weakness, she is able to bear weight and ambulate, reports of mild cough, uses IS only once or twice a day Physical Exam Vital signs: Vital Signs 03/27/18 11:25 03/27/18 16:15 03/27/18 20:00 Temperature 97.7 F 97.6 F 97.5 F L Pulse Rate 98 H 97 H 110 H Respiratory Rate 20 20 18 Blood Pressure 139/74 142/67 H 150/67 H Pulse Oximetry 93 L 95 99 03/28/18 00:00 03/28/18 04:00 03/28/18 07:00 Temperature 97.7 F 97.7 F 98.4 F Pulse Rate 88 89 72 Respiratory Rate 18 18 18 Blood Pressure 143/72 H 180/93 H 164/77 H Pulse Oximetry 95 95 93 L Intake & Output 03/27/18 03/28/18 03/28/18 18:59 06:59 18:59 Output Total 60 / 60 Balance -60 / -60 -20 / -20 Output: Wound Drainage 60 / 60 # 1 Back Ar 60 / 60 Other: # Voids 1 Date of Last Bowel Movement 03/26/18 Narrative: awake, alert JU drain with 80 overnight A&O x 3 CN II-XII intact Motor 5/5 UE and RLE LLE 3-4/5 hip flexion remainder distal 5/5 incision c/d/i - Urinary Catheter Management Indwelling Urethral Catheter Cath placed during this visit: yes, but has since been removed by the nurse Reason for continuing: Hourly intake/output Insertion date: 03/23/18 Insertion time: 09:00 Removal date: 03/26/18 Removal time: 05:30 Assessment and Plan - Plan 62 y/o female s/p Extension of prior L4/5 fusion up to L2/3, Laminectomy at L2/ 3 and L3/4 as well as right sided L2/3 discectomy, Instrumentation from L2-L3-L4 -L5 on 03/23/18 03/24/18 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, oral pain 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 prn cont SCDs and TEDs for dvt prophylaxis PT, mobilize OOB cont JU draining, monitor output f/u HH tomorrow morning case mgt for dc planning, patient will require acute rehab following discharge due to extensive multilevel spinal fusion surgery hospitalist following, appreciate assistance 03/25/18 left hip flexion weakness-- MRI last night showing post op changes, JU drain putting out 350-- keep in up to chair with PT today, keep boswell in one more day 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 03/27/18 H/H stable -- drain output lessening -- will remove tomorrow bowel regimen worked ambulate with PT replace dressing optifoam silver try one dose decadron to see if it will help left leg pain today 03/28/18 dc JU drain, cont bowel regimen advice patient to use IS every 1-2 hours encourage mobilization, OOB to chair bid cont therapy dc planning to [facility] anticipate Wednesday
[2018-03-28] MEDS: Nystatin 100,000 UNITS/GM Powder 15 GM Bottle TOPICAL SCH (13:37)
[2018-03-28] MEDS: Enoxaparin Inj 40 MG/0.4 ML Syringe SQ SCH (14:19)
--- NOTE | 2018-03-29 09:37 | P.PNNS ---
Subjective Interval history: reports of muscle spasms in her thighs, flexeril helps and requests increase in frequency. c/o constipation, had lactulose this morning. Physical Exam Vital signs: Vital Signs 03/28/18 10:54 03/28/18 10:55 03/28/18 15:30 Temperature 98.2 F 98.1 F Pulse Rate 90 100 H Respiratory Rate 19 20 20 Blood Pressure 158/80 H 166/82 H Pulse Oximetry 95 97 03/28/18 18:00 03/28/18 20:00 03/29/18 00:00 Temperature 97.7 F 97.8 F Pulse Rate 91 H 99 H Respiratory Rate 18 20 20 Blood Pressure 142/63 H 161/74 H Pulse Oximetry 98 100 03/29/18 04:00 03/29/18 08:00 Temperature 98.7 F 98.8 F Pulse Rate 99 H 89 Respiratory Rate 20 19 Blood Pressure 132/66 121/59 L Pulse Oximetry 100 92 L Intake & Output 03/28/18 03/29/18 03/29/18 18:59 06:59 18:59 Weight 97.1 kg Other: # Voids 2 Date of Last Bowel Movement 03/26/18 Narrative: awake, alert incision healing well, clean and dry, shaniqua intact A&O x 3 CN II-XII intact Motor 5/5 UE and RLE LLE 3-4/5 hip flexion remainder distal 5/5 - Urinary Catheter Management Indwelling Urethral Catheter Cath placed during this visit: yes, but has since been removed by the nurse Reason for continuing: Hourly intake/output Insertion date: 03/23/18 Insertion time: 09:00 Removal date: 03/26/18 Removal time: 05:30 Assessment and Plan - Plan 62 y/o female s/p Extension of prior L4/5 fusion up to L2/3, Laminectomy at L2/ 3 and L3/4 as well as right sided L2/3 discectomy, Instrumentation from L2-L3-L4 -L5 on 03/23/18 03/24/18 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, oral pain 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 prn cont SCDs and TEDs for dvt prophylaxis PT, mobilize OOB cont JU draining, monitor output f/u HH tomorrow morning case mgt for dc planning, patient will require acute rehab following discharge due to extensive multilevel spinal fusion surgery hospitalist following, appreciate assistance 03/25/18 left hip flexion weakness-- MRI last night showing post op changes, JU drain putting out 350-- keep in up to chair with PT today, keep boswell in one more day 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 03/27/18 H/H stable -- drain output lessening -- will remove tomorrow bowel regimen worked ambulate with PT replace dressing optifoam silver try one dose decadron to see if it will help left leg pain today 03/28/18 dc JU drain, cont bowel regimen advice patient to use IS every 1-2 hours encourage mobilization, OOB to chair bid cont therapy dc planning to [facility] anticipate Wednesday03/29/18 cont therapy, increase mobilization up to chair bid cont bowel regimen, dw nursing - add dulcolax supp if no BM cont flexeril change to q8 hours prn as it helps dc planning to [place] [facility] tomorrow
[2018-03-29] MEDS: Senna/Docusate Sodium 8.6/50 MG Tablet PO SCH ×2 (10:18→22:49)
[2018-03-29] MEDS: amLODIPine 10 MG Tablet PO SCH (10:18)
[2018-03-29] MEDS: Famotidine 20 MG Tablet PO SCH ×2 (10:18→22:49)
[2018-03-29] MEDS: Enoxaparin Inj 40 MG/0.4 ML Syringe SQ SCH (12:50)
[2018-03-30] MEDS: Nystatin 100,000 UNITS/GM Powder 15 GM Bottle TOPICAL SCH (05:29)
[2018-03-30] MEDS: Famotidine 20 MG Tablet PO SCH (09:15)
[2018-03-30] MEDS: Senna/Docusate Sodium 8.6/50 MG Tablet PO SCH (09:15)
[2018-03-30] MEDS: amLODIPine 10 MG Tablet PO SCH (09:15)
--- NOTE | 2018-03-30 09:21 | P.DS ---
<Oziel Chester - Last Filed: 03/30/18 16:00> Date of admission: 03/23/18 06:02 Primary care physician: Nina Thomas MD Brief History from admission: 62yoF admitted with progressive back pain, cramping. She had a prior L4/5 fusion. Imaging showed an L2/3 herniated disc on the right. Extension of fusion and decompression was indicated. Patient update on day of discharge: Patient underwent uneventful L2-5 revision fusion on 03/23/18. She was admitted postoperatively for pain control and transfused on post op day #2. She did well and her drain was discontinued on day 4. She had some left leg proximal weakness which developed on pod#2 but an MRI showed only postoperative fluid collection without evidence of complication. She continued mobilization with PT /OT and was accepted to rehab on pod #6. DS: Summary - Time Spent with Patient Total time spent providing and/or coordinating discharge services: Exam Vital signs: Vital Signs 03/29/18 18:25 03/29/18 20:00 03/30/18 00:00 Temperature 98.0 F 98.1 F Pulse Rate 104 H 90 Respiratory Rate 18 20 18 Blood Pressure 121/63 120/64 Pulse Oximetry 95 95 03/30/18 04:00 03/30/18 08:00 03/30/18 10:16 Temperature 98.1 F 98.3 F Pulse Rate 98 H 90 Respiratory Rate 20 20 18 Blood Pressure 162/75 H 159/77 H Pulse Oximetry 97 95 03/30/18 12:42 Temperature 97.6 F Pulse Rate 103 H Respiratory Rate 20 Blood Pressure 115/58 L Pulse Oximetry 96 Intake & Output 03/29/18 03/30/18 03/30/18 18:59 06:59 18:59 Weight 92.7 kg Other: # Voids 3 Date of Last Bowel Movement 03/29/18 03/29/18 Narrative: A&O x 3 CN II XII intact Incision c/d/i Motor 5/5 UE and BLE except Left hip flexion 3/5 Results Labs on day of discharge: Labs from last 24 hours 03/30/18 12:34 POC Glucose 115 H - Impressions ITS Impressions Chest X-Ray 03/23/18 00:00 CONCLUSION: Negative for acute process Lumbar Spine X-Ray 03/23/18 00:00 CONCLUSION: Anatomic alignment. Lumbar Spine MRI 03/25/18 00:00 CONCLUSION: 1. There has been interval laminectomy and posterior spinal fixation at L2-L3. Hardware now extends posteriorly at L2-L5. There is fluid in the laminectomy defect and edema in the paraspinous soft tissues posteriorly, as expected following recent surgery. No abnormal enhancement is identified. 2. There is stable moderate to severe spinal canal stenosis at L3-L4 secondary to facet arthrosis and disc bulge. 3. There is a right paracentral disc extrusion at L1-L2 that has mild mass effect on the adjacent thecal sac without definite spinal canal stenosis. 4. The previously documented extruded disc at L2-L3 is no longer definitively seen. Venous Doppler Study 03/25/18 00:00 CONCLUSION: No venous thrombosis is identified within the left lower extremity. <Shaye Cornell - Last Filed: 03/31/18 15:09> Date of admission: 03/23/18 06:02 Primary care physician: Nina Thomas MD DS: Summary Hospital Course: Ms. Sage is a 62 year old female who underwent Extension of prior L4/5 fusion up to L2/3, Laminectomy at L2/3 and L3/4 as well as right sided L2/3 discectomy , Instrumentation from L2-L3-L4-L5 on 03/23/[address] Chester. 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 03/27/18 H/H stable -- drain output lessening -- will remove tomorrow bowel regimen worked ambulate with PT replace dressing optifoam silver try one dose decadron to see if it will help left leg pain today 03/28/18 dc JU drain, cont bowel regimen advice patient to use IS every 1-2 hours encourage mobilization, OOB to chair bid cont therapy dc planning to CIR anticipate Wednesday03/29/18 cont therapy, increase mobilization up to chair bid cont bowel regimen, dw nursing - add dulcolax supp if no BM cont flexeril change to q8 hours prn as it helps dc planning to [facility] tomorrow 03/30/18 patient discharge to [facility] for inpatient rehabilitation in stable conditions. - Time Spent with Patient Total time spent providing and/or coordinating discharge services: Less than 30 minutes - Quality: VTE Deep Vein Thrombosis/Pulmonary Embolism Present on Admission: No Exam Vital signs: Vital Signs 03/29/18 10:50 03/29/18 12:00 03/29/18 16:00 Temperature 97.9 F 98.5 F Pulse Rate 97 H 110 H Respiratory Rate 19 20 20 Blood Pressure 135/73 141/67 H Pulse Oximetry 94 L 93 L 03/29/18 18:25 03/29/18 20:00 03/30/18 00:00 Temperature 98.0 F 98.1 F Pulse Rate 104 H 90 Respiratory Rate 18 20 18 Blood Pressure 121/63 120/64 Pulse Oximetry 95 95 03/30/18 04:00 Temperature 98.1 F Pulse Rate 98 H Respiratory Rate 20 Blood Pressure 162/75 H Pulse Oximetry 97 Intake & Output 03/29/18 03/30/18 03/30/18 18:59 06:59 18:59 Weight 92.7 kg Other: # Voids 3 Date of Last Bowel Movement 03/29/18 Results Procedures completed during hospitalization: Extension of prior L4/5 fusion up to L2/3, Laminectomy at L2/3 and L3/4 as well as right sided L2/3 discectomy, Instrumentation from L2-L3-L4-L5 - Impressions ITS Impressions Chest X-Ray 03/23/18 00:00 CONCLUSION: Negative for acute process Lumbar Spine X-Ray 03/23/18 00:00 CONCLUSION: Anatomic alignment. Lumbar Spine MRI 03/25/18 00:00 CONCLUSION: 1. There has been interval laminectomy and posterior spinal fixation at L2-L3. Hardware now extends posteriorly at L2-L5. There is fluid in the laminectomy defect and edema in the paraspinous soft tissues posteriorly, as expected following recent surgery. No abnormal enhancement is identified. 2. There is stable moderate to severe spinal canal stenosis at L3-L4 secondary to facet arthrosis and disc bulge. 3. There is a right paracentral disc extrusion at L1-L2 that has mild mass effect on the adjacent thecal sac without definite spinal canal stenosis. 4. The previously documented extruded disc at L2-L3 is no longer definitively seen. Venous Doppler Study 03/25/18 00:00 CONCLUSION: No venous thrombosis is identified within the left lower extremity. Discharge Plan - Discharge Order Discharge Orders: Discharge Order (Routine); Ordered 03/30/18 Ordered By: Shaye Cornell - Physicians Team Primary Care Provider: Nina Thomas Attending Provider: Oziel Chester Other Providers: Armond Funk MD ; Gin Dewey MD ; [facility] - Rxs /Orders / Referrals /Forms Prescriptions: Continue amlodipine 10 mg Tablet 10 mg PO DAILY hydrocodone-acetaminophen [[place]] 7.5-325 mg Tablet 1 tab PO TID PRN (Reason: Pain) metaxalone [Skelaxin] 800 mg tablet 800 mg PO TID PRN (Reason: muscle pain) Qty: 10 RF: 0 oxybutynin chloride 5 mg Tablet 5 mg PO HS paroxetine HCl [Paxil] 10 mg Tablet 20 mg PO DAILY ranitidine HCl 150 mg Tablet 300 mg PO HS Referrals: Oziel Chester MD [Physician] - See Instructions Nina Thomas MD [Primary Care Provider] - See Instructions - Discharge Instructions Patient Printed Instructions: Laminectomy (DC), Thoracolumbosacral Orthosis (DC )
[2018-03-30] MEDS: Enoxaparin Inj 40 MG/0.4 ML Syringe SQ SCH (12:54)
[2018-03-30 13:04] VITALS: BP 115/58; PULSE 103; RESP 20; TEMP 97.6; O2SAT 96
== END 2018-03-30 14:27 | DRG 460 ==
LOC: HSDI 06:02 → N05 16:04
PROVIDERS: ADMIT Neurological Surgery; ATTEND Neurological Surgery
CPT/HCPCS: 36430; 51798; 71010; 71045; 72100; 72158; 76000; 76937; 80048; 82948; 82962; 85014; 85018; 85025; 85027; 86850; 86900; 86901; 86923; 87641; 88304; 88305; 88311; 93005; 93971; 94150; 97110; 97116; 97162; 97167; 97530; 97535; A9585; C1713; J0131; J0690; J1170; J1200; J1650; J2270; J2704; J3010; J3480; J7120; J8540; L0484; L0560; L0565; P9016